=== PATIENT | male | born 1960 | race Caucasian/White ===

== ENCOUNTER 2018-01-04 18:50 | Emergency (ER) | payer BC ==
[2018-01-04 18:58] VITALS: BP 174/92; PULSE 70; TEMP 98
[2018-01-05] MEDS ORDERED: ZYLOPRIM 300MG300 MG PO (11:06)
[2018-01-05] MEDS ORDERED: TRICOR145 MG PO (11:06)
[2018-01-05] MEDS ORDERED: GLUCOSAMINE & C1 TAB PO (11:06)
[2018-01-05] MEDS ORDERED: LIPITOR20 MG PO (11:06)
[2018-01-05] MEDS ORDERED: MULTI VITAMINS1 TAB PO (11:09)
[2018-01-05] MEDS ORDERED: ZOFRAN ODT4 MG PO ×3 (13:25→13:30)
[2018-01-05] MEDS ORDERED: NORCO 325 MG-51 TAB PO (13:25)
== END 2018-01-04 19:35 | disposition left against medical advice (07) ==
LOC: COL.ER 18:50
DX: R10.32 Left lower quadrant pain (principal)

== ENCOUNTER 2018-01-05 10:50 | Emergency (ER) | payer BC ==
[~2018-01-05] VITALS: Ht 182.9 cm; Wt 113.6 kg
[2018-01-05 10:53] VITALS: TEMP 98.5
[2018-01-05] MEDS ORDERED: TRICOR145 MG PO (11:06)
[2018-01-05] MEDS ORDERED: ZYLOPRIM 300MG300 MG PO (11:06)
[2018-01-05] MEDS ORDERED: LIPITOR20 MG PO (11:06)
[2018-01-05] MEDS ORDERED: GLUCOSAMINE & C1 TAB PO (11:06)
[2018-01-05] MEDS ORDERED: MULTI VITAMINS1 TAB PO (11:09)
[2018-01-05 11:44] LABS: BILIRUBIN,TOTAL 0.7 mg/dL (0.0-1.0); CALCIUM 9.6 mg/dL (8.4-10.2); CREATININE, serum 1.24 mg/dL (0.66-1.25); POTASSIUM 3.9 mmol/L (3.4-5.0); TOTAL PROTEIN 7.1 gm/dL (6.4-8.2)
[2018-01-05 11:51] LABS: C-REACTIVE PROTEIN 1.2 mg/dL (0.0-0.9)
[2018-01-05 12:09] LABS: COLLECTION METHOD CLEAN CATCH
[2018-01-05 12:47] LABS: BASO % 0.2 % (0.0-2.0); EOS # 0.2 (0.0-0.7); EOS % 1.2 % (0-4.0); GRAN # 9.1 (1.4-6.5); GRAN % 72.4 % (42.2-75.2); HEMATOCRIT 41.9 % (42.0-52.0); HEMOGLOBIN 14.6 g/dl (13.5-18.0); LYMPH # 2.1 (1.2-3.4); LYMPH % 16.6 % (20.0-51.0); MEAN CELL VOLUME 88 fl (80.0-100.0); MEAN CORPUSCULAR HEMOGLOBIN 31 pg (27.0-31.0); MEAN CORPUSCULAR HGB CONC 35 g/dl (33.0-37.0); MEAN PLATELET VOLUME 10.3 fl (7.4-10.4); MONO # 1.1 (0.1-0.6); MONO % 9.1 % (1.7-9.3); PLATELET COUNT 253 K/mm3 (130-400); RED BLOOD COUNT 4.77 M/mm3 (4.20-5.60); REDCELL DISTRIBUTION WIDTH-CV 12.2 % (11.5-14.5)
[2018-01-05 12:49] LABS: PH 6 (5-8); SQUAMOUS EPITHELIAL None Seen /hpf; URINE APPEARANCE Clear; URINE BACTERIA None Seen /hpf; URINE BILIRUBIN Negative (NEGATIVE); URINE BLOOD 3+ (NEGATIVE); URINE COLOR Yellow; URINE GLUCOSE Negative (NEGATIVE); URINE KETONE Negative (NEGATIVE); URINE LEUKOCYTE ESTERASE Negative (NEGATIVE); URINE NITRATE Negative (NEGATIVE); URINE PROTEIN(semi-quant) Negative (NEGATIVE); URINE RBC 20-50 /hpf; URINE UROBILINOGEN Negative (NEGATIVE)
[2018-01-05] MEDS ORDERED: ZOFRAN ODT4 MG PO ×3 (13:25→13:30)
[2018-01-05] MEDS ORDERED: NORCO 325 MG-51 TAB PO (13:25)
[2018-01-05 13:45] VITALS: BP 137/90; PULSE 61
== END 2018-01-05 13:45 | disposition home or self-care (01) ==
LOC: COL.ER 10:50
PROVIDERS: Physician Assistant
DX: N20.1 Calculus of ureter (principal); E78.5 Hyperlipidemia, unspecified; M10.9 Gout, unspecified
CPT/HCPCS: J2405; J7030

== ENCOUNTER → 2020-10-28 | Outpatient (CLI) | payer OTHER ==
[~2020-10-28] MED LIST: GLUCOSAMINE & C1 TAB PO; LIPITOR20 MG PO; MULTI VITAMINS1 TAB PO; NORCO 325 MG-51 TAB PO; TRICOR145 MG PO; ZOFRAN ODT4 MG PO; ZYLOPRIM 300MG300 MG PO
== END ==
LOC: COL.RAD 08:00
DX: N20.0 Calculus of kidney (principal); N40.0 Benign prostatic hyperplasia without lower urinary tract symptoms; N32.89 Other specified disorders of bladder; M48.02 Spinal stenosis, cervical region; M48.03 Spinal stenosis, cervicothoracic region; E04.2 Nontoxic multinodular goiter
CPT/HCPCS: Q9967

== ENCOUNTER → 2020-11-16 | Outpatient (CLI) | payer OTHER | LOC: COL.RAD 13:03 | DX: E04.2 Nontoxic multinodular goiter (principal) ==

== ENCOUNTER 2024-04-10 13:29 | Day surgery (SDC) | payer BC ==
[2024-04-10] VITALS (8 sets, daily range): BP systolic 128–151; BP diastolic 70–85; PULSE 58–76; TEMP 99.4
[~2024-04-10 13:29] MED LIST changes: +LR 1,000 ML IV SCH
[2024-04-10] MEDS ORDERED: FLOMAX 0.40.4 MG/CAP PO (14:22)
[2024-04-10] MEDS ORDERED: Lidocaine PF 2% (20 MG/ML) 5 ML VIAL ONE (14:38)
[2024-04-10] MEDS ORDERED: fentaNYL 50 MCG/ML 2 ML VIAL ONE (14:38)
[2024-04-10] MEDS ORDERED: Iohexol 300 - 10 ML VIAL URETER-B ONE (15:23)
[2024-04-10] MEDS ORDERED: HYDROmorphone 1 MG/1 ML SYRINGE [PACU/SDC ONLY] IV PRN (15:30)
[2024-04-10] MEDS ORDERED: fentaNYL 50 MCG/ML 1 ML SYRINGE/VIAL [PACU/SDC ONLY] IV PRN (15:30)
[2024-04-10] MEDS ORDERED: Ondansetron 4 MG/2 ML VIAL IV PRN (15:30)
[2024-04-10] MEDS ORDERED: Lidocaine 2% (20 MG/ML) 20 ML UROJET UR ONE (15:42)
[2024-04-10] MEDS ORDERED: NS Irrig Soln 3000 ML SOLN IR PRN (16:00)
[2024-04-10] MEDS ORDERED: oxyCODONE/Acetaminophen 5-325 MG TAB PO PRN (16:00)
[2024-04-10] MEDS ORDERED: Acetaminophen 325 MG TAB PO PRN (16:00)
[2024-04-10] MEDS ORDERED: Magnes Hydrox (MOM) 80 MG/ML 30 ML CUP PO PRN (16:00)
[2024-04-10] MEDS ORDERED: Hyoscyamine 0.125 MG Sublingual TAB SL PRN ×2 (16:00)
[2024-04-10] MEDS ORDERED: Morphine 4 MG/ML VIAL IV PRN (16:00)
[2024-04-10] MEDS ORDERED: 1/2 NS 1,000 ML IV SCH (16:00)
--- NOTE | 2024-04-10 18:15 | NUR ---
Pt recently arrived to the floor from [facility]. Pt has been recovering down in [facility] for over an hour. Upon transfer ambulating from the [facility] cart to the bed, pt had increase in pain and then started shivering. CBI increased as output turned darker red. Once pt was settled in bed, catheter care provided and got him a new gown. Then pt reported that he was feeling better. Oriented him to his room and educated on room service.
--- NOTE | 2024-04-10 19:00 | NUR ---
PATIENT RESTING IN BED. ALERT AND ORIENTED. POST OP VS STABLE. PATIENT DENIES PAIN OR DISCOMFORT AT THIS TIME. CBI INFUSING. URINE IN YANG BAG IS PINK TINGED AND CLEAR WITH NO CLOTS. ALL NEEDS MET AT THIS VISIT. CALL LIGHT WITHIN REACH.
[2024-04-10] MEDS ORDERED: Melatonin 3 MG TAB PO PRN (21:00)
[2024-04-10] MEDS ORDERED: Docusate Sodium 100 MG CAP PO SCH (21:00)
--- NOTE | 2024-04-10 22:00 | NUR ---
POST OP VITALS COMPLETE. VSS. PATIENT REMAINS STABLE ON RA. CBI CONTINUES INFUSING. URINE IN YANG BAG IS PINK TINGED AND CLEAR WITH NO CLOTS. CALL LIGHT WITHIN REACH. PATIENT RESTING.
[2024-04-11 00:22] VITALS: BP_SYST 128
[2024-04-11 03:09] VITALS: BP 144/85; PULSE 61; TEMP 98.5
--- NOTE | 2024-04-11 03:22 | NUR ---
PATIENT COMPLAINING OF BACK PAIN D/T LYING ON HIS BACK FOR SO LONG. PATIENT ALSO REQUESTING SOMETHING TO HELP HIM SLEEP. THIS RN GAVE OPTION FOR MELATONIN AND TYLENOL OR PERCOCET. PATIENT REQUESTING PERCOCET. WILL ADMINISTER PER SEP. PATIENT AWAKE, ALERT, AND ORIENTED.
[2024-04-11 05:09] VITALS: BP_SYST 144
[2024-04-11 07:54] VITALS: BP 151/87; PULSE 63; TEMP 98.3
--- NOTE | 2024-04-11 08:20 | NUR ---
Hyman removed, balloon intact. Pericare provided before and after removal. Instilled 200 ml fluids. Nurse instructed the patient to void in the urinal and to call nursing staff. Patient awake in bed, A&Ox4. VSS. IV CDI. Denies pain and discomfort. Call light within reach
[2024-04-11] MEDS ORDERED: MULTIPLE VITAMI1 CAP PO (10:11)
--- NOTE | 2024-04-11 11:34 | NUR ---
fast foods worker met with pt to discuss discharge planning. He reports to live with his , Misty [phone] in [place]. He sees Dr. Clemente for PCP needs and obtains medications from [facility] with no difficulties. he confirmed his insurance as [employer]. He is independent with ADLS and uses no DME. He does not have a DPOA-HC, but is agreeable to his being NOK. He is anticipating discharge today. Discharge Plan: home
[2024-04-11 12:00] VITALS: BP 163/72; PULSE 57; TEMP 97.5
--- NOTE | 2024-04-11 12:03 | NUR ---
D: Preparer Making Department stopped by room on rounds. A: Pt was resting and content. No needs right now. P: Preparer Making Department informed pt that if he needed anything from the molder apprentice area to let his nurse know. Preparer Making Department will follow up as needed
--- NOTE | 2024-04-11 12:48 | NUR ---
Discharge paperwork reviewed with the patient and at the bedside. Patient verbalized an understanding. IV removed by the patient. Patient ambulated independently with to awaiting vehicle. No further needs expressed
== END 2024-04-11 12:48 | disposition home or self-care (01) ==
LOC: SDCO 13:29 → SURG 17:58 → SDCO 04-11 12:48
DX: C67.8 Malignant neoplasm of overlapping sites of bladder (principal); R31.0 Gross hematuria; R93.41 Abnormal radiologic findings on diagnostic imaging of renal pelvis, ureter, or bladder; E66.9 Obesity, unspecified; Z87.891 Personal history of nicotine dependence; Z85.828 Personal history of other malignant neoplasm of skin
CPT/HCPCS: OP; C1769; J0690; J2704; J3010; J7120; Q9967

== ENCOUNTER 2024-05-22 13:06 | Day surgery (SDC) | payer BC ==
[2024-05-22] VITALS (12 sets, daily range): BP systolic 144–159; BP diastolic 77–90; PULSE 51–70; TEMP 97.7–98.4
[~2024-05-22] VITALS: Ht 182.9 cm; Wt 107.9 kg
[~2024-05-22 13:06] MED LIST changes: +FLOMAX 0.40.4 MG/CAP PO; +MULTIPLE VITAMI1 CAP PO
--- NOTE | 2024-05-22 14:06 | NUR ---
PATIENT ADMITTED TO ROOM 6 AMBULATORY AND IS ALERT AND ORIENTED X3. PATIENT VOICED UNDERSTANDING OF SURGERY AND CONSENT SINGED. ADMITTED TO EATING ONE SLICE OF TOAST THIS AM AT 0900 AND DRANK PULP FREE ORANGE JUICE. REPORTED THIS TO SILVER MITCHELL. WILL PROCEED TO SURGERY AT 1500 SCHEDULED.
[2024-05-22] MEDS ORDERED: Lidocaine PF 2% (20 MG/ML) 5 ML VIAL ONE (14:31)
[2024-05-22] MEDS ORDERED: Rocuronium 50 MG/5 ML Multi-Dose VIAL ONE (14:31)
[2024-05-22] MEDS ORDERED: fentaNYL 50 MCG/ML 2 ML VIAL ONE (14:57)
[2024-05-22] MEDS ORDERED: Ondansetron 4 MG/2 ML VIAL ONE (15:14)
[2024-05-22] MEDS ORDERED: dexAMETHasone 10 MG/ML VIAL ONE (15:14)
[2024-05-22] MEDS ORDERED: Glycopyrrolate 0.2 MG/ML 1 ML VIAL ONE (15:14)
[2024-05-22] MEDS ORDERED: Lidocaine 2% (20 MG/ML) 20 ML UROJET UR ONE (15:25)
[2024-05-22] MEDS ORDERED: Ondansetron 4 MG/2 ML VIAL IV PRN ×2 (15:30→17:00)
[2024-05-22] MEDS ORDERED: HYDROmorphone 1 MG/1 ML SYRINGE [PACU/SDC ONLY] IV PRN (15:30)
[2024-05-22] MEDS ORDERED: hydrALAZINE 20 MG/ML 1 ML VIAL IV PRN (15:30)
[2024-05-22] MEDS ORDERED: fentaNYL 50 MCG/ML 1 ML SYRINGE/VIAL [PACU/SDC ONLY] IV PRN (15:30)
[2024-05-22] MEDS ORDERED: Hyoscyamine 0.125 MG Sublingual TAB SL PRN ×2 (16:15→17:00)
[2024-05-22] MEDS ORDERED: Morphine 4 MG/ML VIAL IV PRN (17:00)
[2024-05-22] MEDS ORDERED: 1/2 NS & 20 mEq KCl 1,000 ML IV SCH (17:00)
[2024-05-22] MEDS ORDERED: Magnes Hydrox (MOM) 80 MG/ML 30 ML CUP PO PRN (17:00)
[2024-05-22] MEDS ORDERED: Acetaminophen 325 MG TAB PO PRN (17:00)
[2024-05-22] MEDS ORDERED: NS Irrig Soln 3000 ML SOLN IR PRN (17:00)
--- NOTE | 2024-05-22 17:35 | NUR ---
PATIENT ARRIVED TO SURGICAL FLOOR AT APPROX 1730. PATIENT IS AWAKE, ALERT, AND ORIENTED. POST OP VS. VSS. YANG DD WITH CLEAR, SANTO RED URINE NOTED. PAIN IS 3/10.
--- NOTE | 2024-05-22 19:20 | NUR ---
Patient requesating oxycodone for pain. States he cant tolerate morphine. Spoke to Dr Josue and new orders received and initiated.
[2024-05-22] MEDS ORDERED: oxyCODONE/Acetaminophen 5-325 MG TAB PO PRN (19:30)
[2024-05-22] MEDS ORDERED: oxyCODONE 5 MG TAB PO PRN ×2 (19:45)
--- NOTE | 2024-05-22 21:40 | NUR ---
Patient called stating the oxycodone tab didnt help pain-rating pain 7/10 on pain scale-described as bladder spasms/back pain/pressure in bladder. CBI is running at a moderate rate with light pink output-occasional clot. 2nd oxycodone given per dr order. Tylenol and levsin also given. Will monitor.
--- NOTE | 2024-05-22 22:49 | NUR ---
Patient resting eyes closed. No s/s of pain or discomfort. CBI continues to run at a slow rate with light pink output. Will monitor.
[2024-05-23] VITALS (7 sets, daily range): BP systolic 135–152; BP diastolic 80–84; PULSE 56–60; TEMP 97.7–98.7
--- NOTE | 2024-05-23 04:04 | NUR ---
Patient called stating he was having pain in bladder-described as spasms. Also states his back is hurting-rating pain 5/10 on pain scale-levsin/oxycodone given per dr stewart. CBI continues to run at a slow rate with light pink output/occasional pea size clot. IV fluids DCd per order-patietn has had approx 3500mls of water and tolerating. Denies current questions/concerns. Call light in reach. Will monitor.
--- NOTE | 2024-05-23 06:50 | NUR ---
Bedside report given to JANET Morales.
[2024-05-23] MEDS ORDERED: ROXICODONE 55 MG/TAB PO (08:10)
[2024-05-23] MEDS ORDERED: Atorvastatin 20 MG TAB PO SCH (09:00)
--- NOTE | 2024-05-23 09:34 | NUR ---
Social work student met with patient this morning. Pt lives in [place], [place] with his , Misty (p# [phone]). Pt sees Dr. Clemente for PCP and uses [facility] for pharmacy. Pt is independent with ADLS and does not use any DME. Pt filled out a DPOA form with SW student and listed his Misty, daughter Verena Gonzalez (p# [phone]), and son Dusty Roth (p# [phone]). Copy of DPOA was placed in Pt's chart and Pt was given the original with three additional copies. Discharge plan: home
--- NOTE | 2024-05-23 10:15 | NUR ---
PRIMED AND PULLED.PER ORDERS. PT HAS BEGUN 4 CUP. PT HAD EMESIS X1 CLEAR LIQUID PER PT REPORT. PT REPORTING DRINKING LG AMOUNT OF WATER PRIOR TO EMESIS. ENCOURAGED TO CONTINUE WITH PO INTAKE BUT AT A SLOWER RATE. PT VERBALIZED UNDERSTANDING. PT REPORTS FEELING BETTER AFTER EMESIS. WILL CONTINUE WITH CARE PLAN UNTIL PT MEETS CRITERIA FOR DISCHARGE.
--- NOTE | 2024-05-23 13:56 | NUR ---
D: [employer]cels[employer] Machine Feeder stopped by room on rounds. A: Pt was resting and content with in the room. Pt has no needs right now. P: [employer] Machine Feeder informed pt that if he needed anything from the transplant worker area to let his nurse know. Ex[employer] Machine Feeder will follow up as needed.
--- NOTE | 2024-05-23 14:10 | NUR ---
DISCHARGE INSTRUCTIONS REVIEWED WITH PT AND . QUESTIONS SOLICITED AND ANSWERED. PT LEFT UNIT AMBULATORY WITH STAFF.
== END 2024-05-23 14:11 | disposition home or self-care (01) ==
LOC: SDCO 13:06 → SURG 17:30 → SDCO 05-23 14:11
DX: C67.8 Malignant neoplasm of overlapping sites of bladder (principal); E66.9 Obesity, unspecified; Z68.32 Body mass index [BMI] 32.0-32.9, adult; Z85.828 Personal history of other malignant neoplasm of skin
CPT/HCPCS: OP; J0690; J1100; J2405; J2704; J3010; J3480; J7120